=== PATIENT | male | born 1940 | race Caucasian/White ===

== ENCOUNTER → 2021-03-03 15:36 | Outpatient (CLI) | payer MEDICARE, SELFPAY ==
--- NOTE | 2021-03-03 15:43 | CT_ITS ---
STUDY: CT ABDOMEN AND PELVIS WITH AND WITHOUT CONTRAST REASON FOR EXAM: Male, 80 years old. Single episode of gross hematuria. Increased urgency Incontinence for 2 months. RADIATION DOSAGE (If Supplied By Facility): CTDIvol = ( 26.17 ) mGy, DLP = ( 4040.65 ) mGycm TECHNIQUE: Transaxial images were obtained from the dome of the diaphragm to the symphysis pubis without oral contrast. IV 100mL Isovue-300 was administered. Sagittal and coronal images were reconstructed. Individualized dose optimization techniques were used for this CT. COMPARISON: None. FINDINGS: Small calcified granuloma in the lingula seen best on image 1 of series 3. The lungs are otherwise clear. The visualized portions of the heart are within normal limits. Normal liver. There are surgical clips in the gallbladder fossa consistent with a prior cholecystectomy. There are multiple benign calcified granulomata of the spleen. There is partial fatty replacement of pancreas without mass. Normal bilateral adrenal glands. Normal right kidney. Normal left kidney. Normal bilateral ureters. Large retrocardiac hiatal hernia. The distal stomach is unremarkable. Normal small intestine. Colonic diverticulosis most marked in the descending and sigmoid colon without inflammatory change. The appendix is visualized and appears normal. There is diffuse atherosclerotic calcification of the abdominal aorta, without a demonstrated aneurysm. Normal inferior vena cava. Normal retroperitoneum. There is mild circumferential wall thickening of the urinary bladder without mass or filling defect. The prostate is enlarged and invaginates into the bladder floor. There are phleboliths in the pelvis without lymphadenopathy. No free air or free fluid seen within the peritoneal cavity. Small bilateral inguinal hernias of omental fat. The abdominal wall is otherwise unremarkable. There are diffuse degenerative changes of the visualized lumbar spine. There is evidence of spinal stenosis at L2-3 and L4-5. CT/CT Abd/Pelvis W/WO Contrast IMPRESSION: 1. No evidence of renal or ureteral abnormality. 2. Enlarged prostate. There is mild bladder wall thickening suggesting mild outlet obstruction. 3. Degenerative changes lumbar spine. 4. Hiatal hernia. 5. Old granulomatous disease. Electronically Signed: Viraj Santo DO at 16:16 EDT Tel [phone], Service support ,
[2021-03-03 15:56] LABS: CREATININE FINGERSTICK 1.7 mg/dL (0.70-1.30)
== END ==
PROVIDERS: Referring Provider Nurse Practitioner Adult Health; Visit Provider Nurse Practitioner Adult Health
DX: R31.0 Gross hematuria (principal)
CPT/HCPCS: 74178; Q9967

== ENCOUNTER → 2021-03-21 09:48 | Outpatient (CLI) | payer MEDICARE, SELFPAY ==
--- NOTE | 2021-03-21 14:10 | EKG12_ITS ---
Test Reason : PRE OP Blood Pressure : / mmHG Vent. Rate : 088 BPM Atrial Rate : 088 BPM P-R Int : 210 ms QRS Dur : 136 ms QT Int : 382 ms P-R-T Axes : 107 019 012 degrees QTc Int : 462 ms Sinus rhythm with 1st degree A-V block Right bundle branch block Abnormal ECG Confirmed by GILMER MARTINEZ, FELECIA ([id number]), digital editor THOMAS POLO ([id number]) on 03/25/2021 10:25:25 A M Referred By: Abel Mejia Confirmed By:FELICE SCHERER MD
[2021-03-21 15:25] LABS: Hematocrit 44.2 % (40-54); Hemoglobin 14.6 g/dL (13.0-16.5); Mean Corpuscular Hgb 28.3 pg (27.0-32.0); Mean Corpuscular Volume 85.7 fL (80-94); Mean Platelet Vol. 10.1 fl (6.2-12.0); Platelet Count 201 K/mm3 (150-450); Red Blood Count 5.16 M/mm3 (4.6-6.2)
[2021-03-21 15:46] LABS: Hemoglobin A1c 11.9 % (3.8-5.6)
[2021-03-21 15:59] LABS: Anion Gap 7 (5-15); BUN 16 mg/dL (7-18); BUN/Creat Ratio 14.4 RATIO (10-20); Calcium,Total 9.3 mg/dL (8.5-10.1); Chloride 104 mmol/L (98-107); Creatinine, Serum 1.11 mg/dL (0.70-1.30); EST Glomerular Filtration Rate 68 mL/min (>60); Est Glom Filt Rate - Afr Amer 82 mL/min (>60); Glucose 248 mg/dL (74-106); Sodium Level 138 mmol/L (136-145); Thyroid Stim Hormone (TSH) 2.82 uIU/mL (0.358-3.74)
== END ==
PROVIDERS: Anesthesiology; Referring Provider Urology; Visit Provider Urology
DX: Z01.810 Encounter for preprocedural cardiovascular examination (principal); Z01.818 Encounter for other preprocedural examination; N40.1 Benign prostatic hyperplasia with lower urinary tract symptoms; N32.81 Overactive bladder; R39.15 Urgency of urination; Z79.899 Other long term (current) drug therapy; I10 Essential (primary) hypertension; E78.5 Hyperlipidemia, unspecified; E11.9 Type 2 diabetes mellitus without complications
CPT/HCPCS: 36415; 80048; 83036; 84443; 85027; 93005

== ENCOUNTER → 2021-04-24 10:53 | Outpatient (CLI) | payer MEDICARE, SELFPAY ==
[2021-04-11 09:02] VITALS: BMI 35.2
--- NOTE | 2021-04-24 10:55 | ECHOCS_ITS ---
Reason For Study: CAD/ASHD Procedure This was a 2D Doppler, Color Flow transthoracic echocardiogram. The study was technically difficult. Exam performed in department. Left Ventricle Normal LV size. Left ventricular systolic function is normal. The estimated ejection fraction is 75 %. Stage 1 diastolic dysfunction. No regional wall motion abnormalities noted. Right Ventricle Normal RV size. Normal systolic function. Atria Normal left atrium. Normal right atrium. Mitral Valve Normal mitral valve. Tricuspid Valve Normal tricuspid valve. Mild (1+) tricuspid valve insufficiency. Pulmonary artery systolic pressure is 40 mmHg. Aortic Valve Trisinus/trileaflet aortic valve. Mild focal aortic valve calcification. Pulmonic Valve Normal pulmonic valve. Great Vessels Normal aortic root. Pericardium/Pleural No pericardial effusion. Medication 22 gauge I.V. with prn adaptor inserted into right arm. Diluted definity 2ml given slow IV push to enhance endocardial definition. MMode/2D Measurements & Calculations LVIDd: 4.0 cm IVSd: 1.00 cm Ao root diam: 3.2 cm LVIDs: 2.4 cm LVPWd: 1.0 cm RVDd: 3.1 cm FS: 39.9 % LAV(MOD-bp): 39.2 ml LVAd ap4: 24.5 cm2 SV(MOD-sp4): 46.1 ml LAV(MOD-bp) Indexed: 18.0 ml/m2 LVLd ap4: 7.1 cm LAV(MOD-sp2): 47.1 ml EDV(MOD-sp4): 67.3 ml LAV(MOD-sp4): 31.7 ml EDV(sp4-el): 72.4 ml LVAs ap4: 13.0 cm2 LVLs ap4: 6.3 cm ESV(MOD-sp4): 21.2 ml ESV(sp4-el): 22.5 ml EF(MOD-sp4): 68.5 % EF(sp4-el): 68.9 % SV(sp4-el): 49.9 ml LA A4 area: 14.7 cm2 LA dimension(2D): 3.4 cm RA A4 area: 12.3 cm2 Time Measurements MV dec time: 0.15 sec Doppler Measurements & Calculations MV E max howard: 75.6 cm/sec Lat Peak E' Howard: 8.9 cm/sec Med Peak E' Howard: 5.9 cm/sec MV A max howard: 121.2 cm/sec E/E' lat: 8.5 E/E' med: 12.9 MV E/A: 0.62 Ao V2 max: 193.4 cm/sec LV V1 max: 102.1 cm/sec PA V2 max: 132.4 cm/sec Ao max P.0 mmHg LV V1 max P.2 mmHg TR max howard: 306.5 cm/sec TR max P.6 mmHg ECHO/Echo Complete W/ Contrast Interpretation Summary Normal LV size. Left ventricular systolic function is normal. The estimated ejection fraction is 75 %. Stage 1 diastolic dysfunction. Pulmonary artery systolic pressure is 40 mmHg. Contrast injection was performed. Ordering Physician: Meño Cardona Referring Physician: JOSELITO HENDERSON Performed By: Smitha Stoll RDCS
--- NOTE | 2021-04-24 17:16 | STRESSREP ---
Stress Test Report Pharmacologic myocardial perfusion stress test. 80-year-old man with a history of hypertension hyperlipidemia for preoperative evaluation. Stress protocol: Resting EKG demonstrates normal sinus rhythm with a rate of 90 bpm. Resting blood pressure is 138 over 80 mmHg right bundle branch block is noted. 0.4 mg of regadenoson was infused per usual protocol followed by rapid intravenous saline flush injection continuous EKG monitoring was performed. At rest there were no ST or T wave changes noted to suggest abnormal flow reserve and at peak infusion nonspecific ST changes were noted with did not meet the criteria for ischemia. No clinical angina was noted. The final blood pressure was 140/90 mmHg with a peak blood pressure of 164/94 mmHg. Myocardial perfusion protocol. 14.1 mCi of technetium 99m sestamibi was injected at rest. 0.4 mg of regadenoson was infused per usual protocol. At peak infusion 44.6 mCi of technetium 99m sestamibi was injected stress images were obtained stress and rest images were reconstructed and compared in the short axis vertical long and horizontal long axis. Gated images were also obtained. Perfusion SPECT analysis: Review of the stress images demonstrate normal uptake of tracer noted in all areas of the myocardium. The resting images similarly demonstrate normal uptake of tracer noted in all areas of the myocardium. No previous infarct is noted. Gated SPECT analysis: The gated ejection fraction is 85%. Conclusion: Normal pharmacologic myocardial perfusion stress test. Preserved ejection fraction.
== END ==
PROVIDERS: Referring Provider Internal Medicine Cardiovascular Disease; Visit Provider Internal Medicine Cardiovascular Disease
DX: Z01.810 Encounter for preprocedural cardiovascular examination (principal); R55 Syncope and collapse; I25.10 Atherosclerotic heart disease of native coronary artery without angina pectoris
CPT/HCPCS: 78452; 93017; 93306; A9500; Q9957; A4216; C8929; J2785; J3490

== ENCOUNTER 2021-06-18 06:17 | Day surgery (SDC) | payer MEDICARE, SELFPAY ==
[2021-04-11 09:02] VITALS: BMI 35.2
[2021-06-12 16:30] LABS: Anion Gap 6 (5-15); BUN 16 mg/dL (7-18); BUN/Creat Ratio 14.4 RATIO (10-20); Calcium,Total 8.9 mg/dL (8.5-10.1); Chloride 103 mmol/L (98-107); Creatinine, Serum 1.11 mg/dL (0.70-1.30); EST Glomerular Filtration Rate 68 mL/min (>60); Est Glom Filt Rate - Afr Amer 82 mL/min (>60); Glucose 299 mg/dL (74-106); Potassium 4.1 mmol/L (3.5-5.1); Sodium Level 136 mmol/L (136-145)
[2021-06-12 16:38] LABS: Hemoglobin A1c 11.4 % (3.8-5.6)
[2021-06-18] VITALS (16 sets, daily range): BP systolic 147–199; BP diastolic 81–122; PULSE 82–95; RESP 16; TEMP 36.3–37.1; O2SAT 91–96; BMI 33.9; BMI 35.6
--- NOTE | 2021-06-18 | PROS_PTH ---
PATIENT: SERG [place]WK[place] [facility] [id number] AGE/SX: 80/M ROOM: RE06/18/[address]: Dr. Abel Mejia MD : 1940 BED: DIS: 06/19/2021 SPEC #: [id number] RECD: 06/18/21 14:37 STATUS: GUS REJo #: [id number] JUAN: 06/18/21 00:[address]: Abel Mejia DEPT: SURGICAL PATHOLOGY RECD BY: Malcolm Menezes ENTERED: 06/19/21 08:21 SP TYPE: TURP OTHR DR: Dr. Estela Bello, DO Tissues: Prostate, NOS Procedures: Surgery Specimen Level IV HEADER OPERATION: Cysto, TUR prostate, Olympus PRE-OP DIAGNOSIS: BPH, bladder outlet obstruction TISSUE SUBMITTED: Prostate chips MICROSCOPIC DIAGNOSIS Prostate, TUR: Benign prostatic hyperplasia, predominantly stromal type. SJ:chalino 06/20/2021 MICROSCOPIC DESCRIPTION Slides are reviewed. GROSS DESCRIPTION Received is one container labeled with the patient's name and designated prostate chips. The specimen consists of multiple irregular fragments of pink-carr, rubbery, soft tissue that in aggregate weigh 10.4 gm and measure in aggregate 5 x 5 x 2 cm. The entire specimen is submitted in ten cassettes. / REENA:chalino 06/19/21 TC:5 CPT: 65297
[2021-06-18] MEDS: Lactated Ringers 1,000 ML 100 ML IV (07:08)
[2021-06-18 07:25] LABS: Bedside Glucose 299 mg/dL (70-110)
[2021-06-18] MEDS: Insulin Lispro 100 UNIT/ML INSULN.PEN SC (07:26)
--- NOTE | 2021-06-18 08:32 | SUR.PREOP ---
RN assisted PT. to bathroom to void and back to bed.
[2021-06-18] MEDS: Cefazolin 2 GM in 0.9% Normal Saline 100 ML IV (09:16)
--- NOTE | 2021-06-18 09:29 | PCM.HP.STD ---
HPI - General HPI Narrative SERG HAWKINS, is a 80 M who presents with BPH presents for a TUR[facility] Medical History Alcohol use Ambulates with cane Arthritis Back pain BPH w urinary obs/LUTS Dietary restriction Essential hypertension Former smoker GERD (gastroesophageal reflux disease) History of edema History of hiatal hernia History of pain when walking History of rheumatic fever Hyperlipidemia Hypothyroidism Insulin dependent diabetes mellitus Loss of hearing No natural teeth Obesity (BMI 30.0-34.9) Osteoarthritis Right bundle branch block (RBBB) Syncope Type 2 diabetes mellitus without complication Wears glasses Home Medications atorvastatin 10 mg PO QHS 03/21/21 [History Last Taken Unknown] pantoprazole 40 mg PO DAILY 03/21/21 [History Last Taken Unknown] diphenhydramine 25 mg-acetaminophen 500 mg tablet 2 tab PO QHS PRN tab 04/09/21 [History Last Taken Unknown] insulin glargine 100 unit/mL (3 mL) subcutaneous pen 28 unit SUBCUT QPM ml 04/09/21 [History Last Taken Unknown] levothyroxine 25 mcg tablet 25 mcg PO DAILY tab 04/09/21 [History Last Taken Unknown] lisinopril 10 mg tablet 20 mg PO QHS tab 04/09/21 [History Last Taken 06/18/21 05:30] ciprofloxacin HCl [Cipro] 500 mg PO BID #14 tab 06/18/21 [Rx Last Taken Unknown] Allergy/AdvReac Type Severity Reaction Status Date / Time erythromycin base Allergy Intermediate nausea Verified 06/18/21 06:59 aspirin AdvReac Upset Verified 06/18/21 06:59 Stomach Family History Mother Hypertension Brother Diabetes Father Hypertension Surgical History History of arthroscopic knee surgery History of esophagogastroduodenoscopy (EGD) Hx laparoscopic cholecystectomy Hx of colonoscopy Hx of hand surgery Hx of left cataract extraction Hx of right cataract extraction Social History Smoking Status: Former smoker alcohol intake: never substance use type: does not use caffeine: Yes Vital Signs Vital Signs Vital Signs: 06/18/21 07:00 Temperature 98.8 F Temperature Source Temporal Pulse Rate 82 Respiratory Rate 16 Respiratory Pattern Normal Blood Pressure 147/81 H Blood Pressure Mean 103 Blood Pressure Source Monitor Blood Pressure Position Semi-Fowlers Blood Pressure Location Right Arm Pulse Ox 96 Oxygen Delivery Method Room Air Weight Weight: 101.3 kg Body Mass Index (BMI) 33.9 Physical Exam Const alert and oriented x3 General Appearance: cooperative HEENT normocephalic, head/scalp atraumatic, EAC's normal and TM's normal bilaterally Eyes PERRL and EOMs intact bilaterally Pupil: sluggish Neck no lymphadenopathy, supple and no JVD General: trachea midline Lymph Lymphatic: no lymphadenopathy noted, lymphedema and lymphadenopathy Resp normal respiratory effort, normal air movement and clear to auscultation bilaterally Cardio regular rate, regular rhythm and peripheral pulses 2+ throughout GI soft to palpation, non-tender and non-distended Extremity normal capillary refill and no clubbing, cyanosis or edema General Extremity: no tenderness to palpation of joints or extremities Skin no rashes or lesions noted General Skin Exam: turgor normal Lesions: no lesions Rashes: no rashes Neuro CN's II-XII intact bilaterally Speech: speech normal Motor Exam: strength 5/5 throughout; Negative for general weakness Psych thought process normal, cooperative and affect normal Appearance: appropriate Results Lab / Micro Data Result Diagrams: 06/12/21 13:17 06/12/21 13:17 Labs: Laboratory Results - last 24 hr 06/18/21 06:54: POC Glucose 299 H Assessment & Plan Assessment/Plan (1) BPH (benign prostatic hyperplasia):
--- NOTE | 2021-06-18 09:29 | PCM.DC ---
Discharge Instructions Diet Discharge Diet: No restrictions Activity Discharge Activity: Return to Normal Activity and May Not Drive (while taking narcotic pain medications.) Dressing / Incision Call your doctor if you observe: Fever of 101 or Higher Follow Up Care Please Follow Up With: Abel Mejia MD When: Call [phone] for an appointment Test Results: Test results from this visit will be discussed in further detail at your follow-up appointment, if applicable. Discharge Plan Admission Primary Reason for Your Visit: jo Attending Provider: Abel Mejia Primary Care Provider: Estela Bello Instructions Patient Instructions: DAYNA Home Recovery Discharge Orders/Prescriptions Prescriptions: New ciprofloxacin HCl [Cipro] 500 mg tablet 500 mg PO BID Qty: 14 RF: 0 Continued diphenhydramine-acetaminophen [Tylenol PM Extra Strength] 25-500 mg tablet 2 tab PO QHS PRN (Reason: Insomnia) RF: 0 insulin glargine 100 unit/mL (3 mL) insulin pen 28 unit subcut QPM RF: 0 levothyroxine 25 mcg tablet 25 mcg PO DAILY RF: 0 atorvastatin 10 mg Tablet 10 mg PO QHS RF: 0 pantoprazole 40 mg Tablet,Delayed Release (Dr/Ec) 40 mg PO DAILY RF: 0 lisinopril 10 mg tablet 20 mg PO QHS RF: 0 Discontinued oxybutynin chloride 5 mg tablet extended release 24hr 5 mg PO DAILY RF: 0 finasteride 5 mg Tablet 5 mg PO DAILY RF: 0 tamsulosin 0.4 mg capsule 0.8 mg PO DAILY RF: 0 Referrals / Follow Up: Abel Mejia MD [STAFF PHYSICIAN] - Estela Bello DO [Primary Care Provider] - Disposition Disposition (needs filled in before D/C Order can be placed): Home, Self Care
[2021-06-18] MEDS: Lactated Ringers 1,000 ML 150 ML IV ×3 (10:16→21:22)
--- NOTE | 2021-06-18 10:30 | PCM.OPRPT ---
Report of Operation Date of Procedure: 06/18/21 Pre-Operative Diagnosis: BPH with obstruction Post-Operative Diagnosis: Same Surgery/Procedure Performed:: Transurethral section of prostate Description of Surgical Findings:: In the preoperative setting I discussed with the patient how the surgery would be done with expect afterwards. We discussed how a prostate resection is done and we discussed the risk of the surgery including, bleeding, infection, retrograde ejaculation, changes with ejaculation or intercourse,. We discussed the possibility that the resection of the prostate may not alleviate his urinary symptoms. We discussed the small risk of developing scar tissue along the urethral channel and strictures. We also discussed the chance of the prostate could grow back and he may need further surgery or treatment in the future for prostate problems. Patient was taken back to the operating room, timeout procedure was performed, he was identified and marked and placed on the operating room table. He underwent general anesthesia. He was placed in dorsolithotomy position. Penis and testicles were prepped and draped in usual sterile fashion. Went into the bladder using the visual obturator with a resectoscope. Once inside the bladder identified the right and left ureteral orifice. I then identified the prostate and the anatomy of the prostate. I marked out the area of the sphincter and the verumontanum was identified. I then proceeded with the prostate resection first resected the median lobe. And then resected the right lobe of the prostate. Then to resect the left lobe of the prostate. I then resected the apical tissue of the prostate. Made sure that there was no injury to the sphincter or the verumontanum was still intact. At the end of the resection all the chips were Ellik out of the bladder. I then identified the left and right ureteral orifice and these were confirmed to be in good position and effluxing and not injured. The resectoscope was removed, a 22 Kinyarwanda catheter was placed into the bladder on continuous irrigation. And the urine was fairly light pink color and draining normally. He was taken back to the PACU in good condition. Surgeon: Abel Mejia Type of Anesthesia: General Drains: 20 fr ducnan Admit VTE Documentation VTE Present on Admission: No VTE Mechan Device Prophylaxis: SCD's
[2021-06-18 11:35] LABS: Bedside Glucose 242 mg/dL (70-110)
--- NOTE | 2021-06-18 13:33 | SUR.PHASEI ---
resting in bed, waiting on room to be cleaned on medsurg taking snack update given to family
[2021-06-18] MEDS: Pantoprazole Sodium 40 MG Tablet PO (15:00)
[2021-06-18] MEDS: Ciprofloxacin 500 MG Tablet PO ×2 (15:01→22:47)
[2021-06-18] MEDS: Ondansetron 4 MG/2 ML Vial IV (17:29)
[2021-06-18] MEDS: Furosemide 20 MG/2 ML VIAL 10 MG IV (18:20)
[2021-06-18] MEDS: amLODIPine 5 MG Tablet PO (18:20)
[2021-06-18] MEDS: Lisinopril 20 MG Tablet PO (22:47)
[2021-06-18] MEDS: Atorvastatin Calcium 10 MG Tablet PO (22:47)
[2021-06-18] MEDS: Docusate Sodium 100 MG Capsule 200 MG PO (22:47)
[2021-06-18 23:01] LABS: Bedside Glucose 364 mg/dL (70-110)
[2021-06-19 02:30] VITALS: BP 124/73; PULSE 92; RESP 17; TEMP 36.4; O2SAT 97
[2021-06-19] MEDS: Lactated Ringers 1,000 ML 150 ML IV ×2 (02:36→10:04)
--- NOTE | 2021-06-19 05:00 | NURSING ---
Pt complaining of pressure in bladder. Pt stood at bedside with only mild relief. Pt bladder scanned for 0-17ml.
[2021-06-19 06:35] VITALS: BP 124/76; PULSE 88; RESP 16; TEMP 36.6; O2SAT 94
[2021-06-19] MEDS: Levothyroxine 25 MCG TABLET PO (06:38)
[2021-06-19 06:45] LABS: Bedside Glucose 203 mg/dL (70-110)
[2021-06-19] MEDS: Pantoprazole Sodium 40 MG Tablet PO (10:04)
[2021-06-19] MEDS: Docusate Sodium 100 MG Capsule 200 MG PO (10:04)
[2021-06-19] MEDS: Glucerna Shake 120 ML LIQUID PO (10:04)
[2021-06-19] MEDS: Ciprofloxacin 500 MG Tablet PO (10:04)
[2021-06-19 10:10] VITALS: BP 122/64; PULSE 86; RESP 16; TEMP 36.6; O2SAT 94
--- NOTE | 2021-06-19 11:53 | PHA.DC.MC ---
Pharmacy Service has performed discharge medication reconciliation and counseling for this patient. The patient was counseled on the following discharge medications and changes in medications for homegoing were reviewed. 1. CIPRO The Reason for Use, instructions for use, and potential side effects were reviewed for all new medications. The patient's questions regarding all of their medications were answered. The patient demonstrated some understanding but would benefit from further education and reinforcement. Home Medications atorvastatin 10 mg PO QHS 03/21/21 pantoprazole 40 mg PO DAILY 03/21/21 diphenhydramine 25 mg-acetaminophen 500 mg tablet 2 tab PO QHS PRN tab 04/09/21 insulin glargine 100 unit/mL (3 mL) subcutaneous pen 28 unit SUBCUT QPM ml 04/09/21 levothyroxine 25 mcg tablet 25 mcg PO DAILY tab 04/09/21 lisinopril 10 mg tablet 20 mg PO QHS tab 04/09/21 ciprofloxacin HCl [Cipro] 500 mg PO BID #14 tab 06/18/21 The patient's discharge medication list was reviewed for discrepancies and discrepancies were resolved.
[2021-06-19 12:56] LABS: Bedside Glucose 322 mg/dL (70-110)
[2021-06-19 16:50] VITALS: BP 123/78; PULSE 85; RESP 16; TEMP 37.2; O2SAT 99
== END 2021-06-19 17:34 | disposition home or self-care (01) ==
LOC: SDC 06:18 → AC 06:19 → MS3 15:58
PROVIDERS: Anesthesiology; Referring Provider Urology; Visit Provider Urology
PROC: (CPT 52601; principal; 2021-06-18 08:40)
DX: N40.1 Benign prostatic hyperplasia with lower urinary tract symptoms (principal); N13.8 Other obstructive and reflux uropathy; K21.9 Gastro-esophageal reflux disease without esophagitis; E78.5 Hyperlipidemia, unspecified; I10 Essential (primary) hypertension; M19.90 Unspecified osteoarthritis, unspecified site; E03.9 Hypothyroidism, unspecified; E11.9 Type 2 diabetes mellitus without complications; E66.9 Obesity, unspecified; Z68.35 Body mass index [BMI] 35.0-35.9, adult; Z87.891 Personal history of nicotine dependence; Z79.899 Other long term (current) drug therapy; Z79.4 Long term (current) use of insulin
CPT/HCPCS: 52601; 36415; 80048; 82962; 83036; 87635; 88305; C9803; J7120; U0005; J1940; J2405; U0003

== ENCOUNTER 2022-03-12 16:20 | Emergency (ER) | payer MEDICARE, SELFPAY ==
[2022-03-12 16:22] VITALS: BP 120/95; PULSE 123; RESP 25; TEMP 36.4; O2SAT 98; BMI 35.0
--- NOTE | 2022-03-12 16:28 | EX.ED.DYSGE1 ---
HPI <COLLEEN Kitchen - Last Filed: 03/12/22 19:28> History of Present Illness Chief Complaint: Dizziness Narrative Narrative: 81-year-old male with history of BPH, hypertension, diabetes presents to the emergency department with 2 weeks of intermittent dizziness, syncopal episode today as well as increased shortness of breath. Patient today was walking in the kitchen then to the living room, felt that his vision change and he had a syncopal episode falling on his right shoulder. Patient also states to have been more short of breath worse on exertion. Patient denies any weight gain, patient denies any recent trips, history of pulmonary embolus or DVT. Patient denies any recent fevers. Patient does not have COVID-19 vaccination. PFS <COLLEEN Kitchen - Last Filed: 03/12/22 19:28> [facility] Medical History Alcohol use Ambulates with cane Arthritis Back pain BPH w urinary obs/LUTS Dietary restriction Essential hypertension Former smoker GERD (gastroesophageal reflux disease) History of edema History of hiatal hernia History of pain when walking History of rheumatic fever Hyperlipidemia Hypothyroidism Insulin dependent diabetes mellitus Loss of hearing No natural teeth Obesity (BMI 30.0-34.9) Osteoarthritis Right bundle branch block (RBBB) Syncope Type 2 diabetes mellitus without complication Wears glasses Home Medications atorvastatin 10 mg PO QHS 03/21/21 [History Last Taken Unknown] pantoprazole 40 mg PO DAILY 03/21/21 [History Last Taken Unknown] insulin glargine 100 unit/mL (3 mL) subcutaneous pen 28 unit SUBCUT QPM ml 04/09/21 [History Last Taken Unknown] levothyroxine 25 mcg tablet 25 mcg PO DAILY tab 04/09/21 [History Last Taken Unknown] lisinopril 10 mg tablet 20 mg PO QHS tab 04/09/21 [History Last Taken 06/18/21 05:30] amlodipine 5 mg PO DAILY 03/12/22 [History Last Taken Unknown] glimepiride 2 mg PO DAILY 03/12/22 [History Last Taken Unknown] oxybutynin chloride 15 mg PO DAILY 03/12/22 [History Last Taken Unknown] Allergy/AdvReac Type Severity Reaction Status Date / Time erythromycin base Allergy Intermediate nausea Verified 03/12/22 16:26 aspirin AdvReac Upset Verified 03/12/22 16:26 Stomach Family History Mother Hypertension Brother Diabetes Father Hypertension Surgical History History of arthroscopic knee surgery History of esophagogastroduodenoscopy (EGD) Hx laparoscopic cholecystectomy Hx of colonoscopy Hx of hand surgery Hx of left cataract extraction Hx of right cataract extraction Social History Smoking Status: Former smoker alcohol intake: never substance use type: does not use caffeine: Yes ROS <COLLEEN Kitchen - Last Filed: 03/12/22 19:28> ROS ED ROS Narrative constitutional: Negative for fever, chills, weight loss, weakness Eyes: Negative for vision loss, vision change, double vision ENT: Negative for any sore throat, ear pain, congestion Cardiovascular: Negative for any chest pain, tightness, racing heartbeat. Positive palpitations Respiratory: Negative for any cough, sputum production, hemoptysis.positive for shortness of breath, shortness of breath on exertion, orthopnea Gastrointestinal: Negative for any abdominal pain, nausea, vomiting, diarrhea, constipation, blood in stool, blood in vomit : Negative for any urinary frequency, incontinence, dysuria, retention, blood in urine Muscle skeletal: Negative for any muscle joint pain, stiffness, myalgias, arthralgias, neck pain, back pain. Positive right shoulder pain Neurological: Negative for any headache, dizziness, numbness or tingling. Positive syncope Skin: Negative for any rashes, lumps, itching, abrasions, lacerations Psychiatric: Negative for any depression, anxiety, stress, suicidal ideation, homicidal ideation Hematologic: Negative for any easy bruising, excessive bruising, easy bleeding Allergies: Negative for any eczema, hives, rash EXAM <COLLEEN Kitchen - Last Filed: 03/12/22 19:28> Physical Exam Narrative Exam Narrative: Vital signs reviewed. Patient at rest does appear to be tachypneic, patient appears to be in mild shortness of breath. Patient is tachycardic HEET: Head normocephalic atraumatic, TMs clear bilaterally. Posterior pharynx is clear, moist mucous membranes. Nares clear bilaterally. Neck: Supple with no lymphadenopathy or tenderness. No signs of meningismus, negative jolt sign. Cardiac: Tachycardic rate no murmurs gallops or rubs, equal peripheral pulses bilaterally. Respiratory: Lungs clear to auscultation bilaterally. No chest tenderness. Abdomen: Soft, nontender, nondistended. No abdominal bruit or pulsatile masses. No hepatosplenomegaly Extremities: No peripheral edema, no signs of gross trauma or deformity. Active full range of motion of all extremities. Neuro: Cranial nerves II through XII intact, no focal neurological deficits. Skin: Clean dry and intact with no rash, purpura, petechiae, vesicles or pustules. Backslash flank: No CVA tenderness, no midline spinal tenderness, no deformity. Psych: Normal mood and affect. No SI, HI or acute psychosis. Const Vital Signs: 03/12/22 16:22 03/12/22 16:37 03/12/22 16:50 Temperature 97.5 F L Temperature Source Oral Pulse Rate 123 H Respiratory Rate 25 H Respiratory Effort Short of Breath Blood Pressure 120/95 H Blood Pressure Mean 103 Pulse Ox 98 95 Oxygen Delivery Method Room Air Room Air Oxygen Flow Rate (L/min) 03/12/22 19:26 03/12/22 21:20 Temperature Temperature Source Pulse Rate 100 112 H Respiratory Rate 24 H 21 H Respiratory Effort Blood Pressure 131/88 H 158/121 H Blood Pressure Mean 102 133 Pulse Ox 97 95 Oxygen Delivery Method Nasal Cannula Nasal Cannula Oxygen Flow Rate (L/min) 2 2 <Dr. Michael Bo, DO - Last Filed: 03/13/22 00:55> Physical Exam Const Vital Signs: 03/12/22 16:22 03/12/22 16:37 03/12/22 16:50 Temperature 97.5 F L Temperature Source Oral Pulse Rate 123 H Respiratory Rate 25 H Respiratory Effort Short of Breath Blood Pressure 120/95 H Blood Pressure Mean 103 Pulse Ox 98 95 Oxygen Delivery Method Room Air Room Air Oxygen Flow Rate (L/min) 03/12/22 19:26 03/12/22 21:20 Temperature Temperature Source Pulse Rate 100 112 H Respiratory Rate 24 H 21 H Respiratory Effort Blood Pressure 131/88 H 158/121 H Blood Pressure Mean 102 133 Pulse Ox 97 95 Oxygen Delivery Method Nasal Cannula Nasal Cannula Oxygen Flow Rate (L/min) 2 2 MDM <Robert GrossmanCOLLEEN moody - Last Filed: 03/12/22 19:28> [facility] Narrative Medical decision making narrative: Patient appears to be in mild shortness of breath at rest, patient is tachycardic, patient will receive a full cardiac/pulmonary work-up including a CT of the brain, cervical spine as well as CT of the chest to rule out any pulmonary embolus. Patient remained stable, patient still is tachypneic however pulse ox is 94% on room air. Patient's CBC was unremarkable, patient's chemistry shows slight renal dysfunction with a creatinine of 1.39. Patient's BNP was slightly elevated 182.5 with a troponin of 83. Patient did receive multiple CAT scans of his head and neck secondary to the syncopal episode. Patient CT of the brain showed a relatively increased density at the left MCA this may be artifactual however CT is recommended, the patient is currently not having any strokelike symptoms, all his symptoms are respiratory. Patient CT of the cervical spine was unremarkable for any acute compression fracture. Patient CT of the chest shows extensive bilateral pulmonary emboli with right heart strain. Large hiatal hernia. Patient will need to be admitted to the hospital and transferred. Patient will be started on IV heparin, supplemental oxygen. Patient still remained stable. The transfer process will begin at [facility]. Lab Data Labs: Laboratory Results - last 24 hr 03/12/22 03/12/22 03/12/22 17:13 17:13 17:13 WBC 9.0 RBC 5.38 Hgb 15.4 Hct 45.8 MCV 85.1 MCH 28.6 MCHC 33.6 RDW Std Deviation 40.2 RDW Coeff of Bruce 13.0 Plt Count 179 MPV 10.1 Immature Gran % (Auto) 0.600 Neut % (Auto) 84.2 H Lymph % (Auto) 8.5 L [place] % (Auto) 5.8 Eos % (Auto) 0.7 Baso % (Auto) 0.2 Absolute Neuts (auto) 7.6 Absolute Lymphs (auto) 0.76 L Nucleated RBC % 0 PT INR APTT Sodium 135 L Potassium 4.1 Chloride 105 Carbon Dioxide 25.0 Anion Gap 5 BUN 18 Creatinine 1.39 H Estim Creat Clear Calc 40.29 Est GFR (MDRD) Af Amer 63 Est GFR (MDRD) Non-Af 52 L BUN/Creatinine Ratio 12.9 Glucose 198 H Calcium 9.2 Troponin I High Sens 83 H B-Natriuretic Peptide 182.5 H 03/12/22 03/12/22 19:23 19:23 WBC RBC Hgb Hct MCV MCH MCHC RDW Std Deviation RDW Coeff of Bruce Plt Count MPV Immature Gran % (Auto) Neut % (Auto) Lymph % (Auto) [place] % (Auto) Eos % (Auto) Baso % (Auto) Absolute Neuts (auto) Absolute Lymphs (auto) Nucleated RBC % PT 14.6 INR 1.2 APTT 26.4 Sodium Potassium Chloride Carbon Dioxide Anion Gap BUN Creatinine Estim Creat Clear Calc Est GFR (MDRD) Af Amer Est GFR (MDRD) Non-Af BUN/Creatinine Ratio Glucose Calcium Troponin I High Sens 96 H B-Natriuretic Peptide Radiography Diagnostic Testing: Clinical Impression(s) from Imaging Studies Chest CTA 03/12/22 16:47 IMPRESSION: Extensive bilateral pulmonary emboli with right heart strain. Large hiatal hernia. Mild diffuse groundglass opacification, with differential to include infectious or inflammatory process as well as mild edema. Electronically Signed: Eleazar Mahajan, at 18:59 EDT , ADDENDUM: 03/12/221926 IMPRESSION: Extensive bilateral pulmonary emboli with right heart strain. Large hiatal hernia. Mild diffuse groundglass opacification, with differential to include infectious or inflammatory process as well as mild edema. N.B. : The above Results were Read Back by Eleazar Mahajan to Michael Bo MD, and understanding confirmed on 03/12/2022 19:20:15 (ET). Electronically Signed: Eleazar Mahajan, at 18:59 EDT , Brain CT 03/12/22 16:48 IMPRESSION: Relatively increased density at the left MCA. This may be artifactual, however CTA is recommended to exclude thrombus. Moderate chronic microvascular ischemic and atrophic changes. Electronically Signed: Eleazar Espinali, at 18:51 EDT , Cervical Spine CT 03/12/22 17:04 IMPRESSION: 1. No CT evidence of acute compression/fracture. 2. Ankylosis of the cervical spine. 3. Multilevel degenerative disc disease and degenerative arthropathy of the cervical spine with neuroforaminal narrowing and central acquired canal stenosis, as described. Electronically Signed: Melissa Stuart MD at 19:12 EDT , Shoulder X-Ray 03/12/22 17:48 IMPRESSION: No fracture or dislocation. Severe degenerative changes. Severely decreased subacromial space with hypertrophic changes of the lateral humeral head, often associated with supraspinatous tendon pathology and impaction. Electronically Signed: Eleazar Espinali, at 18:27 EDT , EKG Sinus tachycardia, right bundle branch block which is chronic: Comments: EKG shows sinus tachycardia with a right bundle branch block, this is chronic, rate of 113 bpm, GA interval 176 ms, QRS duration 142 ms, no acute ST elevation, no acute infarct noted. <Dr. Michael Bo, DO - Last Filed: 03/13/22 00:55> [facility] Narrative Medical decision making narrative: Attending note: Patient seen and evaluated with road consultant. I perform my own [id number] evaluation. I agree with the plan of work-up. Brought in for syncopal episode with exertion.'s been lightheaded for the past week worse with exertion along with dyspnea. No PE risk factors. Denies chest pains. History of diabetes. Denies any history of renal sufficiency. Exam alert or x3 tachypneic, there is mild pale conjunctiva pallor of the skin he is tachycardic. Symmetric breath sounds. History right bundle branch block. History of BPH. We will obtain EKG cardiac work-up trauma scans head and neck. Will obtain CTA chest to rule out PE, will await labs for evaluation of possible anemia. Hemoglobin stable CT head and neck reported from radiology possible concerns increasing density at the left MCA. He has no stroke symptoms or right sided hemiparesis. Likely incidental. His CTA chest was positive for bilateral PEs on the right side right heart strain. Started on heparin. He will need transfer for evaluation for potential EKOS. He would like to go to . We spoke with transfer line and I spoke with Dr. Bauman who evaluated with her team. They would like him transported up to the main hospital to the cardiac ICU under the service Dr. Luke. Patient will be kept NPO. Patient and family updated. Shoulder x-ray reviewed by myself and read by radiology 4 view shows no fracture or dislocation. Lab Data Attestation: I reviewed the patient's lab results. Labs: Laboratory Results - last 24 hr 03/12/22 03/12/22 03/12/22 17:13 17:13 17:13 WBC 9.0 RBC 5.38 Hgb 15.4 Hct 45.8 MCV 85.1 MCH 28.6 MCHC 33.6 RDW Std Deviation 40.2 RDW Coeff of Bruce 13.0 Plt Count 179 MPV 10.1 Immature Gran % (Auto) 0.600 Neut % (Auto) 84.2 H Lymph % (Auto) 8.5 L [place] % (Auto) 5.8 Eos % (Auto) 0.7 Baso % (Auto) 0.2 Absolute Neuts (auto) 7.6 Absolute Lymphs (auto) 0.76 L Nucleated RBC % 0 PT INR APTT Sodium 135 L Potassium 4.1 Chloride 105 Carbon Dioxide 25.0 Anion Gap 5 BUN 18 Creatinine 1.39 H Estim Creat Clear Calc 40.29 Est GFR (MDRD) Af Amer 63 Est GFR (MDRD) Non-Af 52 L BUN/Creatinine Ratio 12.9 Glucose 198 H Calcium 9.2 Troponin I High Sens 83 H B-Natriuretic Peptide 182.5 H 03/12/22 03/12/22 19:23 19:23 WBC RBC Hgb Hct MCV MCH MCHC RDW Std Deviation RDW Coeff of Bruce Plt Count MPV Immature Gran % (Auto) Neut % (Auto) Lymph % (Auto) [place] % (Auto) Eos % (Auto) Baso % (Auto) Absolute Neuts (auto) Absolute Lymphs (auto) Nucleated RBC % PT 14.6 INR 1.2 APTT 26.4 Sodium Potassium Chloride Carbon Dioxide Anion Gap BUN Creatinine Estim Creat Clear Calc Est GFR (MDRD) Af Amer Est GFR (MDRD) Non-Af BUN/Creatinine Ratio Glucose Calcium Troponin I High Sens 96 H B-Natriuretic Peptide Radiography Diagnostic Testing: Clinical Impression(s) from Imaging Studies Chest CTA 03/12/22 16:47 IMPRESSION: Extensive bilateral pulmonary emboli with right heart strain. Large hiatal hernia. Mild diffuse groundglass opacification, with differential to include infectious or inflammatory process as well as mild edema. Electronically Signed: Eleazar Mahajan, at 18:59 EDT , ADDENDUM: 03/12/22 192 IMPRESSION: Extensive bilateral pulmonary emboli with right heart strain. Large hiatal hernia. Mild diffuse groundglass opacification, with differential to include infectious or inflammatory process as well as mild edema. N.B. : The above Results were Read Back by Eleazar Mahajan to Michael Bo MD, and understanding confirmed on 03/12/2022 19:20:15 (ET). Electronically Signed: Eleazar Mahajan, at 18:59 EDT , Brain CT 03/12/22 16:48 IMPRESSION: Relatively increased density at the left MCA. This may be artifactual, however CTA is recommended to exclude thrombus. Moderate chronic microvascular ischemic and atrophic changes. Electronically Signed: Eleazar Mahajan, at 18:51 EDT , Cervical Spine CT 03/12/22 17:04 IMPRESSION: 1. No CT evidence of acute compression/fracture. 2. Ankylosis of the cervical spine. 3. Multilevel degenerative disc disease and degenerative arthropathy of the cervical spine with neuroforaminal narrowing and central acquired canal stenosis, as described. Electronically Signed: Melissa Stuart MD at 19:12 EDT , Shoulder X-Ray 03/12/22 17:48 IMPRESSION: No fracture or dislocation. Severe degenerative changes. Severely decreased subacromial space with hypertrophic changes of the lateral humeral head, often associated with supraspinatous tendon pathology and impaction. Electronically Signed: Eleazar Mahajan, at 18:27 EDT , <Dr. Michael Bo, DO - Last Filed: 03/13/22 00:55> Critical Care Time Critical Care Time: Yes Critical care time (excluding procedures): 30-74 minutes, Discussing w/Patient &/or Family/Pigskin Trimmer, Discussing w/Consultants, Arranging Admission or Transfer, Performing Direct Patient Care at Bedside and - (45 minutes) Discharge Plan Triage Chief Complaint: Dizziness ED Midlevel Provider: Robert Ferguson ED Provider: Michael Bo Dx/Rx/DC Orders Clinical Impression: Pulmonary embolism, bilateral, Syncope, Contusion of right shoulder, Elevated troponin Prescriptions: No Action insulin glargine 100 unit/mL (3 mL) insulin pen 28 unit subcut QPM RF: 0 levothyroxine 25 mcg tablet 25 mcg PO DAILY RF: 0 atorvastatin 10 mg Tablet 10 mg PO QHS RF: 0 pantoprazole 40 mg Tablet,Delayed Release (Dr/Ec) 40 mg PO DAILY RF: 0 lisinopril 10 mg tablet 20 mg PO QHS RF: 0 oxybutynin chloride 15 mg tablet extended release 24hr 15 mg PO DAILY RF: 0 amlodipine 5 mg tablet 5 mg PO DAILY RF: 0 glimepiride 1 mg tablet 2 mg PO DAILY RF: 0 Primary Care Provider: Estela Bello Referrals: Estela Bello, [Primary Care Provider] - Disposition Disposition: Transfer to Another Type HCF Discharge Location: Main Discharge Date/Time: 03/12/22 21:43
--- NOTE | 2022-03-12 16:47 | CT_ITS ---
We are attempting to reach an attending provider to discuss findings. An addendum with communication details will be sent when the communication is complete. STUDY: CTA CHEST REASON FOR EXAM: Male, 81 years old. concern for PE RADIATION DOSAGE (If Supplied By Facility): CTDIvol = ( 15.84 ) mGy, DLP = ( 497.79 ) mGycm TECHNIQUE: The examination was performed with the intravenous administration of IV 100mL Isovue-370. Post-processing of the angiographic images was performed, with multiplanar reformation and 3D reconstruction. Individualized dose optimization techniques were used for this CT. COMPARISON: None. FINDINGS: There are extensive blood clots throughout the pulmonary arteries bilaterally, on the right at the distal main pulmonary artery extending into all branches, and on the left at the upper and lower lobe lobar branches extending into segmental and subsegmental branches. Normal thoracic aorta and visualized great vessels. There is no demonstrated aortic dissection. There is bowing of the intraventricular septum. Normal mediastinum. Normal hilar regions. Normal visualized trachea and bronchi. The lungs are well expanded. Mild diffuse groundglass opacification is present. There is no consolidation. Normal pleura. Normal chest wall structures. Normal osseous structures. There is a large hiatal hernia. CT/CTA Chest W/WO Contrast IMPRESSION: Extensive bilateral pulmonary emboli with right heart strain. Large hiatal hernia. Mild diffuse groundglass opacification, with differential to include infectious or inflammatory process as well as mild edema. Electronically Signed: Eleazar Mahajan, at 18:59 EDT ,
--- NOTE | 2022-03-12 16:47 | EKG12_ITS ---
Test Reason : DIZZINESS Blood Pressure : / mmHG Vent. Rate : 113 BPM Atrial Rate : 113 BPM P-R Int : 176 ms QRS Dur : 142 ms QT Int : 396 ms P-R-T Axes : 047 041 -18 degrees QTc Int : 543 ms Sinus tachycardia Right bundle branch block T wave abnormality, consider inferior ischemia Abnormal ECG Confirmed by AUDREY MARTINEZ, JOSELITO ([id number]), technical writer and editor THOMAS POLO ([id number]) on 03/13/2022 11:42:13 AM Referred By: TL Confirmed By:JOSELITO VENTURA MD
--- NOTE | 2022-03-12 16:48 | CT_ITS ---
STUDY: CT BRAIN WITHOUT CONTRAST REASON FOR EXAM: Male, 81 years old. Syncope RADIATION DOSAGE (If Supplied By Facility): DLP = ( 846.73 ) mGycm TECHNIQUE: Transaxial CT imaging of the brain was performed without administration of intravenous contrast material. Individualized dose optimization techniques were used for this CT. COMPARISON: None. FINDINGS: Moderate chronic microvascular ischemic and atrophic changes are present. There is no acute bleed. There is relatively increased density at the left MCA. There are normal white matter tracts. The ventricles are normal in configuration. There is no hydrocephalus. The visualized paranasal sinuses are clear. The mastoid air cells are well aerated. There is no skull fracture. CT/Brain/Head without Contrast IMPRESSION: Relatively increased density at the left MCA. This may be artifactual, however CTA is recommended to exclude thrombus. Moderate chronic microvascular ischemic and atrophic changes. Electronically Signed: Eleazar Mahajan, at 18:51 EDT ,
[2022-03-12 16:50] VITALS: O2SAT 95
--- NOTE | 2022-03-12 17:04 | CT_ITS ---
STUDY: CT CERVICAL SPINE WITHOUT CONTRAST REASON FOR EXAM: Male, 81 years old patient with neck injury after fall. RADIATION DOSAGE (If Supplied By Facility): CTDIvol = ( 25.04 ) mGy, DLP = ( 514.35 ) mGycm TECHNIQUE: High resolution transaxial imaging was performed without contrast material. Sagittal and coronal images were reconstructed. Individualized dose optimization techniques were used for this CT. COMPARISON: None FINDINGS: Normal craniovertebral junction. There are degenerative changes of the anterior atlantoaxial articulation. Normal odontoid process. There is straightening of the normal cervical lordosis. There appears to be ankylosis of the C5, C6, C7, T1, T2 and T3 vertebral segments and possibly secondary either to diffuse idiopathic sclerosing hyperostosis versus ankylosing spondylitis. C2-3: Normal endplates. Normal disc height and morphology. Normal central canal. There is severe left-sided neuroforaminal narrowing with hypertrophic left-sided facet joint hypertrophy. Right-sided neuroforamen is patent. C3-4: There is narrowing of the disc space. There is disc bulge and osteophyte complex. There is severe left-sided neural foraminal narrowing with hypertrophic facet arthropathy. There is moderate right-sided neural foraminal narrowing. There is bilateral uncovertebral and right-sided facet arthropathy. There is mild central canal stenosis. C4-5: There is narrowing of disc space and vacuum disc phenomenon. There endplate osteophytes. There is severe neural foraminal narrowing with bilateral facet arthropathy. Uncovertebral joints are within normal limits. There is no central acquired canal stenosis. C5-6: Bridging syndesmophytes along the anterior longitudinal ligament at this level. There is moderate neural foraminal narrowing with bilateral uncovertebral and facet arthropathy. There is no central acquired canal stenosis. C6-7: There are bridging syndesmophytes at this level. There is moderate bilateral neural foraminal narrowing with uncovertebral and facet arthropathy. There is no central acquired canal stenosis. C7-T1: There are bridging syndesmophytes at this level. Normal disc height and morphology. Normal central canal and intervertebral neuroforamina. The lung apices appear to be clear. Paraspinal soft tissues are within normal limits. CT/Spine Cervical without Contras IMPRESSION: 1. No CT evidence of acute compression/fracture. 2. Ankylosis of the cervical spine. 3. Multilevel degenerative disc disease and degenerative arthropathy of the cervical spine with neuroforaminal narrowing and central acquired canal stenosis, as described. Electronically Signed: Melissa Stuart MD at 19:12 EDT ,
[2022-03-12 17:40] LABS: Absolute Lymphocyte Count 0.76 X10^3/uL (0.83-4.51); Absolute Neutrophil Count 7.6 X10^3/uL (2.0-7.7); Anion Gap 5 (5-15); BUN 18 mg/dL (7-18); BUN/Creat Ratio 12.9 RATIO (10-20); Basophil# 0.02 X10^3/uL; Basophil% 0.2 % (0-1); Calcium,Total 9.2 mg/dL (8.5-10.1); Chloride 105 mmol/L (98-107); Creatinine, Serum 1.39 mg/dL (0.70-1.30); EST Glomerular Filtration Rate 52 mL/min (>60); Eosinophil# 0.06 X10^3/uL; Eosinophils% 0.7 % (0-5); Est Glom Filt Rate - Afr Amer 63 mL/min (>60); Estimated Creatinine Clearance 40.29 ml/min; Glucose 198 mg/dL (74-106); Hematocrit 45.8 % (40-54); Hemoglobin 15.4 g/dL (13.0-16.5); Lymphocyte # 0.76 X10^3/ul (0.83-4.51); Lymphocyte % 8.5 % (19-41); Mean Corp Hgb Conc 33.6 g/dL (32-36); Mean Corpuscular Hgb 28.6 pg (27.0-32.0); Mean Corpuscular Volume 85.1 fL (80-94); Mean Platelet Vol. 10.1 fl (6.2-12.0); Monocyte# 0.52 X10^3/uL; Monocyte% 5.8 % (0-10); NRBC Flagged by Analyzer 0 % (0-5); Neutrophil # 7.55 X10^3/uL (2.7-7.7); Neutrophil % 84.2 % (47-70); Platelet Count 179 K/mm3 (150-450); Potassium 4.1 mmol/L (3.5-5.1); RBC Distribution Width SD 40.2 fl (35.1-43.9); Red Blood Count 5.38 M/mm3 (4.6-6.2); Sodium Level 135 mmol/L (136-145); Troponin-I HS (w/2H Reflex) 83 pg/mL (3.0-78.0)
--- NOTE | 2022-03-12 17:48 | RAD_ITS ---
STUDY: X-RAY - RIGHT SHOULDER REASON FOR EXAM: Male, 81 years old. Fall TECHNIQUE: 4 view(s) of the shoulder. COMPARISON: None. FINDINGS: There is no evidence of fracture or dislocation. Severe degenerative changes are present at the acromioclavicular joint. There is severely decreased subacromial space with hypertrophic changes of the lateral humeral head. There are no radiodense foreign bodies. RAD/Shoulder min 2 Views IMPRESSION: No fracture or dislocation. Severe degenerative changes. Severely decreased subacromial space with hypertrophic changes of the lateral humeral head, often associated with supraspinatous tendon pathology and impaction. Electronically Signed: Eleazar Mahajan, at 18:27 EDT ,
[2022-03-12 17:58] LABS: BNP,B-Type NATRIURETIC PEPTIDE 182.5 pg/mL (0-100)
[2022-03-12 19:19] LABS: Reflex Troponin-HS? (from REC) Y
[2022-03-12 19:26] VITALS: BP 131/88; PULSE 100; RESP 24; O2SAT 97
[2022-03-12 19:44] LABS: International Normalized Ratio 1.2; Prothrombin Time (Protime)PT. 14.6 SECONDS (11.7-14.9)
[2022-03-12 19:45] LABS: Partial Thromboplast Time 26.4 Seconds (24.1-36.2)
[2022-03-12 19:55] LABS: Troponin-I HS 96 pg/mL (3.0-78.0)
[2022-03-12] MEDS: HEPARIN/D5w 25,000 UNITS 25,000 UNITS/250 ML IV.SOLN. 10 UNITS IV (20:27)
[2022-03-12] MEDS: Heparin Injection (Vial) 5,000 UNIT/ML VIAL 4000 UNIT IV (20:28)
[2022-03-12 21:20] VITALS: BP 158/121; PULSE 112; RESP 21; O2SAT 95
== END 2022-03-12 21:43 | disposition other institution (70) ==
PROVIDERS: Nurse Practitioner; Emergency Provider Emergency Medicine; Visit Provider Emergency Medicine
DX: I26.99 Other pulmonary embolism without acute cor pulmonale (principal); R55 Syncope and collapse; S40.011A Contusion of right shoulder, initial encounter; E03.9 Hypothyroidism, unspecified; I10 Essential (primary) hypertension; K21.9 Gastro-esophageal reflux disease without esophagitis; R06.02 Shortness of breath; Z79.899 Other long term (current) drug therapy; Z87.891 Personal history of nicotine dependence; W19.XXXA Unspecified fall, initial encounter
CPT/HCPCS: 70450; 71275; 72125; 73030; 80048; 83880; 84484; 85025; 85610; 85730; 87428; 93005; 99285; J7030; Q9967; A4216